=== PATIENT | female | born 1985 | race Caucasian/White ===

== ENCOUNTER 2017-03-27 15:09 | Emergency (ER) | payer OTHER ==
[2017-03-27] MEDS ORDERED: IBUPROFEN 600 MG TAB PO ONE (17:49)
--- NOTE | 2017-03-27 17:49 | EDPHY ---
H & P Stated Complaint: L groin pain VS lifting today at work Time Seen by Provider: 03/27/17 16:54 HPI/ROS: CHIEF COMPLAINT: left hip pain HISTORY OF PRESENT ILLNESS: 31-year-old female presents emergency department complaining of left hip and groin pain. Patient was at work today lifting a heavy suitcase from the luggage rack. Patient lifted the suitcase and twisted not realizing it was very heavy. She had a sudden onset sharp pain in her groin on the left. Patient reports this pain has continued, worse with weight- bearing, she reports it is associated with nausea, no vomiting. She denies difficulty urinating. No back pain, no numbness or tingling in this leg. She denies previous injury to this hip. No abdominal pain. REVIEW OF SYSTEMS: A comprehensive 10 point review of systems is otherwise negative aside from elements mentioned in the history of present illness. Source: Patient Exam Limitations: No limitations - Medical/Surgical History Hx Asthma: No Hx Chronic Respiratory Disease: No Hx Diabetes: No Hx Cardiac Disease: No Hx Renal Disease: No Hx Cirrhosis: No Hx Alcoholism: No Hx HIV/AIDS: No Hx Splenectomy or Spleen Trauma: No Other PMH: denies - Social History Smoking Status: Never smoked - Physical Exam Exam: Physical Exam Gen: Alert and Oriented, NAD HEENT: PERRL, moist mucous membranes NECK: no meningismus CV: regular rate and regular rhythm PULM: CTAB, no wheezes ABDOMEN: soft, non tender to palpation, no masses, with no inguinal hernia noted , BS present BACK: No CVA tenderness NEURO: Neurologically grossly intact EXTREMITIES: Left hip with full range of motion, tenderness to palpation over hip flexors and lateral hip. Pain with hip abduction. No knee pain or ankle pain, 2+ pedal pulses SKIN: no rash or break in skin on exposed skin PSYCH: answers questions appropriately. Constitutional: Initial Vital Signs Temperature (C) 37.1 C 03/27/17 15:13 Heart Rate 71 03/27/17 15:13 Respiratory Rate 18 03/27/17 15:13 Blood Pressure 129/88 H 03/27/17 15:13 O2 Sat (%) 100 03/27/17 15:13 O2 Delivery Mode Room Air Allergies/Adverse Reactions: No Known Allergies Allergy (Verified 10/06/11 15:11) Home Medications: Medication Instructions Recorded No Medications [NO HOME 0 ea [facility] [place] 10/06/11 MEDICATIONS] Medical Decision Making - Diagnostics Imaging Results: Imaging Impressions Hip X-Ray 03/27/17 17:08 Impression: Negative radiographs of the left hip. Imaging: I viewed and interpreted images myself ED Course/Re-evaluation: 31-year-old female with a normal left hip x-ray. She has no evidence of a septic joint. Patient likely has a hip sprain. I have recommended rest, ice, ibuprofen. She is referred to an orthopedist for symptoms that are not improving. She is given return precautions for any neurovascular compromise or fevers. Patient is comfortable with this plan. Differential Diagnosis: Diagnosis considered but not limited to hip sprain, hip flexor strain, inguinal hernia, labral tear, fracture, septic joint. - Data Points Medications Given: Discontinued Medications Ibuprofen (Motrin) 600 mg PO EDNOW ONE Stop: 03/27/17 17:50 Last Admin: 03/27/17 18:19 Dose: 600 mg Departure - Departure Disposition: Home, Routine, Self-Care Clinical Impression: Sprain of left hip Qualifiers: Encounter type: initial encounter Qualified Code(s): S73.102A - Unspecified sprain of left hip, initial encounter Condition: Good Instructions: Hip Sprain (ED) Additional Instructions: Rest, ice, elevate, take 600 mg of ibuprofen every 8 hours with food for 3-5 days. Follow up with orthopedist for pain that is not improving in the next 5- 7 days. Return to the emergency department for worsening symptoms, new symptoms or concerns. Referrals: Urszula Gore MD [Medical Doctor] - As per Instructions (Orthopedist on- call)
[2017-03-27 18:24] VITALS: BP 121/70; PULSE 69; RESP 16; TEMP 97.9; O2SAT 97
== END 2017-03-27 18:24 | disposition home or self-care (01) ==
DX: S73.102A Unspecified sprain of left hip, initial encounter (principal); X50.0XXA Overexertion from strenuous movement or load, initial encounter; Y92.69 Other specified industrial and construction area as the place of occurrence of the external cause; Y99.0 Civilian activity done for income or pay; Y93.89 Activity, other specified